=== PATIENT | male | born 1985 | race Caucasian/White ===

== ENCOUNTER 2018-03-29 08:31 | Emergency (ER) | payer BC ==
[2018-03-29] MEDS: KETOROLAC 30 MG INJ IM (09:04)
[2018-03-29] MEDS: DIAZEPAM 2 MG TAB PO (09:12)
== END 2018-03-29 10:18 | disposition home or self-care (01) ==
LOC: FTE 08:31
DX: M54.2 Cervicalgia (principal)
CPT/HCPCS: 72040; 96372; 99284-25